=== PATIENT | female | born 2000 | race Caucasian/White ===

== ENCOUNTER 2024-09-20 21:39 | Emergency (ER) | payer BC, SELFPAY ==
[2024-09-20 21:43] VITALS: BP 123/84
[2024-09-20 22:16] LABS: % Basophils 0.4 % (0-2); % Eosinophils 2.1 % (0-6); % Immature Granulocytes 0.2 % (0-0.5); % Lymphocytes 28.1 % (20.5-51.1); % Monocytes 6.6 % (1.7-9.3); % Neutrophils 62.6 % (42.2-75.2); Absolute Basophils 0.1 10^3/uL (0-0.2); Absolute Eosinophils 0.3 10^3/uL (0-0.7); Absolute Lymphocytes 3.5 10^3/uL (1.2-3.4); Absolute Monocytes 0.8 10^3/uL (0.1-0.6); Absolute Neutrophils 7.9 10^3/uL (1.4-6.5); Hematocrit 39.3 % (37.0-47.0); Hemoglobin 12.7 g/dL (12.0-16.0); Mean Corp Hgb Conc. 32.3 g/dL (33.0-37.0); Mean Corpuscular Hgb 27.7 pg (27.0-31.0); Mean Corpuscular Volume 85.6 fL (81.0-99.0); Mean Platelet Volume 8.9 fL (7.4-10.4); Nucleated Red Blood Cells % 0 %; Platelet Count 409 10^3/uL (130-400); Red Blood Cell Count 4.59 10^6/uL (4.20-5.40); Red Cell Dist. Width 12.6 % (11.5-14.5); White Blood Cell Count 12.5 10^3/uL (4.8-10.8)
[2024-09-20 22:33] LABS: COVID-19 Antigen Negative (Negative)
[2024-09-20 22:33] LABS: ALT (SGPT) 28 U/L (0-35); AST (SGOT) 29 U/L (14-36); Albumin 4.8 g/dl (3.5-5.0); Alkaline Phosphatase 96 U/L (38-126); Blood Urea Nitrogen 10 mg/dl (7-17); Calcium 9.6 mg/dl (8.4-10.2); Carbon Dioxide 27 mmol/L (22-30); Chloride 101 mmol/L (98-107); Glucose 97 mg/dl (70-99); Potassium 4.3 mmol/L (3.5-5.1); Sodium 141 mmol/L (135-145); Total Bilirubin 0.2 mg/dl (0.2-1.3); Total Protein 8.2 g/dl (6.3-8.2); eGFR > 60.00
[2024-09-20 22:41] LABS: Troponin I < 0.012 ng/ml
[2024-09-21 00:17] VITALS: BP 127/84
[2024-09-21 01:00] VITALS: BP 109/72
--- NOTE | 2024-09-21 01:47 | ED.GENMED ---
History of Present Illness
General
Chief Complaint: Fainting/Passed Out
Time Seen by Provider: 09/21/24 00:27
History of Present Illness
History of Present Illness:
24-year-old female with history of celiac's disease presenting to the emergency department with syncopal episode. Patient reports for the past several days she has been having a nonproductive cough. Prior to arrival, they were lighting a candle
and it triggered her to have a coughing fit. She then went into the bathroom because she was going to vomit. She sat on the ground and subsequently had a witnessed syncopal episode. Mother reports that she came to it after a few minutes. Patient
does note history of a syncopal episode in the past, after a panic attack. She presently denies any chest, difficulty breathing, weakness, numbness to extremities. She denies any recent fever or known sick contacts. She does note some throat
pain. Denies additional acute medical complaints
Phy Exam
Physical Exam
Physical Exam:
General: Well-appearing, no clinical signs of dehydration, nontoxic and in no acute distress
HEENT: protecting airway, normal-appearing oropharynx
Neck: appears supple
CV: Normal heart rate, regular rhythm
Resp: No accessory muscle use, no increased work of breathing, lungs clear to auscultation bilaterally
Abd: Soft and non-distended, no tenderness to palpation
Extremities: No deformities, no swelling, no erythema
Neuro: alert, no focal neurologic deficit
: deferred
Rectal: deferred
Psych: Normal affect
Skin: Intact
Course
Orders/Labs/Results
Orders:
Orders
09/20/24 21:42
EKG [Electrocardiogram (*1)] Urgent
Reason for Study: Syncope
EKG- Treatment ONCE
09/20/24 21:57
CR Chest - 2 Views Urgent
Comment:
Reason For Exam: respiratory distress
09/20/24 22:03
COVID-19 Antigen Urgent
Source: Nasal Swab
INF RAPID [Influenza A+B Rapid Molecular] Urgent
NATO Source: Nasal Swab
Specimen Description:
09/20/24 22:06
Complete Blood Count/With Diff Urgent
Comprehensive Metabolic Panel Urgent
Troponin I Urgent
09/21/24 01:23
Ketorolac [Toradol] 15 mg IM NOW STA
Abnormal Lab Results
09/20/24
22:06
WBC 12.5 H 10^3/uL
(4.8-10.8)
MCHC 32.3 L g/dL
(33.0-37.0)
Plt Count 409 H 10^3/uL
(130-400)
Absolute Neuts (auto) 7.9 H 10^3/uL
(1.4-6.5)
Absolute Lymphs (auto) 3.5 H 10^3/uL
(1.2-3.4)
Absolute Monos (auto) 0.8 H 10^3/uL
(0.1-0.6)
Creatinine 0.5 L mg/dL
(0.6-1.0)
09/20/24 22:06
09/20/24 22:06
Vital Signs
Initial and Last Documented VS:
Initial Vital Signs
Temp Pulse Resp BP Pulse Ox
99.4 F 86 16 123/84 99
09/20/24 21:43 09/20/24 21:43 09/20/24 21:43 09/20/24 21:43 09/20/24 21:43
Last Documented Vital Signs
Temp Pulse Resp BP Pulse Ox
99.4 F 86 16 109/72 99
09/20/24 21:43 09/20/24 21:43 09/20/24 21:43 09/21/24 01:00 09/21/24 01:15
MDM/Problems Addressed
MDM/Problems Addressed:
24-year-old female with history of celiac's disease presenting after a syncopal episode, as well as cough. Vital signs are normal.
On exam patient is resting comfortably, no acute distress or discomfort. Unremarkable cardiac and pulmonary exam. Patient afebrile, nontoxic. No focal neurologic deficits. Ultimately suspect vasovagal syncopal episode. Patient reports that she
passed out after a coughing fit. EKG nonischemic, no arrhythmia without concern acute cardiac pathology. Again no focal deficits, without central neurologic process. Regarding patient's cough, suspected viral URI. Prior to my assessment, patient
urinalysis and viral swabs, negative. She also had a chest x-ray, without dense of acute pneumonia. She remains hemodynamically stable, asymptomatic. At this time feel that she is stable for discharge with close outpatient primary care follow-up
and continued supportive therapy for her cough. Return precautions communicated to patient and mother at bedside who verbalized understanding
*EKG
Interpreted by ED Provider?: Yes
EKG Intrepretation Date: 09/21/24
EKG Intrepretation Time: 01:54
Interpretation: normal
Comparison EKG: no comparison EKG present
Heart Rate: 86
Rate: normal
Rhythm: sinus
[place]: normal axis
Interval: normal interval
QRS Pattern: normal QRS
Ischemia: no ischemia
*Critical Care Note
Total Time (30-74mins, 75-104mins- exclusive of procedures): Not Applicable
ED Attending Note
-
Portions of this chart may have been created with voice recognition software.� Occasional wrong word or��sound alike� substitutions may have occurred due to the inherent limitations of voice recognition software.
Discharge Plan
Departure
Patient Disposition: Home (Routine Discharge)
Date of Disposition: 09/21/24
Time of Disposition: 01:44
Patient with high blood pressure during this ER visit?: No
Condition: Good
Discharge Problem:
Syncope, vasovagal, Acute viral syndrome
Instructions: Syncope (Fainting) (DC), Upper Respiratory Infection ED
Referrals:
Brianna Peña DO [Family Provider] -
Activity Restrictions/Additional Instructions:
You were seen in the emergency department for a syncopal episode
You are suspected to have an episode of vasovagal syncope. You had normal blood work, chest x-ray imaging, EKG, viral swabs. We also suspect that you have a viral upper respiratory infection. Please continue to take Tylenol or Motrin as for your
symptoms and plenty of oral fluids.
Please follow-up closely with your primary care physician.
Return to the emergency department for any worsening of your symptoms, or any development of chest pain, difficulty breathing, abdominal pain with persistent vomiting and inability to tolerate food or liquid by mouth (concern for dehydration),
weakness, headache or confusion, fever greater than 100.4, or any additional symptoms that are concerning to you.
Thank you for choosing [facility].
Interventions
Interventions:
*Risk Screen - Suicide Last Done: 09/20/24 21:43
*General Assessment Last Done: 09/20/24 21:43
*Neglect/Abuse Screening Last Done: 09/20/24 21:43
ED- Fall Risk Assessment Last Done: 09/20/24 21:43
*ED COVID-19 Vaccine History Last Done: 09/20/24 21:43
ED- Cardiac Assessment Last Done: 09/21/24 00:22
ED- Neurological Assessment Last Done: 09/21/24 00:22
Discharge Date and Time
Print Language: SLOVENIAN
[2024-09-21 02:00] VITALS: BP 113/63
[2024-09-21] MEDS: TORADOL 15 MG IM (02:30)
== END 2024-09-21 02:39 | disposition home or self-care (01) ==
LOC: EMR 21:39
PROVIDERS: EMERGENCY PHYSICIAN Student in an Organized Health Care Education/Training Program; FAMILY PHYSICIAN Internal Medicine
DX: R55 Syncope and collapse (principal); R07.0 Pain in throat; R05.9 Cough, unspecified; B34.9 Viral infection, unspecified; Z11.52 Encounter for screening for COVID-19; K90.0 Celiac disease; Z88.0 Allergy status to penicillin; Z91.018 Allergy to other foods
CPT/HCPCS: 99284; 96372; 71046; 80053; 84484; 85025; 87502; 87811; 93005

== ENCOUNTER 2024-11-29 05:51 | Emergency (ER) | payer BC, SELFPAY ==
[2024-11-29 05:59] VITALS: BP 120/82
[2024-11-29 06:32] LABS: % Basophils 0.3 % (0-2); % Eosinophils 0.1 % (0-6); % Immature Granulocytes 0.4 % (0-0.5); % Lymphocytes 7.6 % (20.5-51.1); % Monocytes 7.6 % (1.7-9.3); Absolute Basophils 0.1 10^3/uL (0-0.2); Absolute Immature Granulocytes 0.1 10^3/uL (0-0.05); Absolute Lymphocytes 1.7 10^3/uL (1.2-3.4); Absolute Monocytes 1.7 10^3/uL (0.1-0.6); Absolute Neutrophils 18.9 10^3/uL (1.4-6.5); Hematocrit 37.5 % (37.0-47.0); Hemoglobin 12.5 g/dL (12.0-16.0); Mean Corp Hgb Conc. 33.3 g/dL (33.0-37.0); Mean Corpuscular Hgb 28.6 pg (27.0-31.0); Mean Corpuscular Volume 85.8 fL (81.0-99.0); Mean Platelet Volume 8.9 fL (7.4-10.4); Nucleated Red Blood Cells % 0 %; Platelet Count 363 10^3/uL (130-400); Red Blood Cell Count 4.37 10^6/uL (4.20-5.40); Red Cell Dist. Width 13.3 % (11.5-14.5); White Blood Cell Count 22.5 10^3/uL (4.8-10.8)
[2024-11-29 06:48] LABS: HCG, Serum Qualitative Screen Negative
[2024-11-29 06:55] LABS: Blood Urea Nitrogen 13 mg/dl (7-17); Calcium 9.8 mg/dl (8.4-10.2); Carbon Dioxide 22 mmol/L (22-30); Chloride 103 mmol/L (98-107); Glucose 107 mg/dl (70-99); Potassium 4.5 mmol/L (3.5-5.1); Sodium 139 mmol/L (135-145); eGFR > 60.00
--- NOTE | 2024-11-29 08:00 | ED.GENMED ---
History of Present Illness
General
Chief Complaint: Throat Problem
Source: patient and family (mother at bedside)
Exam Limitations: none
Time Seen by Provider: 11/29/24 07:34
Nursing documentation reviewed up to this point in time: agreed with
History of Present Illness
History of Present Illness:
24 yo female w h/o celiac, anxiety/depression, presents with gradually worsening sore throat and swelling for past 3 days. Last Ibuprofen 4 a.m.
Past History
Past History
ED Past Medical History: Psychiatric (anxiety, depression) and Other (Celiac)
Social History
Tobacco: Non-smoker
Alcohol: None
Personal: Single
Living: with family
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
Review of Systems
Review of Systems
Allergies reviewed?: Yes
All Other Systems: ROS reviewed and negative except as documented in HPI and ROS
Constitutional: Reports fatigue
EENT: Reports sore throat (swollen glands)
Respiratory: Denies trouble breathing
Cardiac: Denies chest pain
ABD/GI: Denies abdominal pain, nausea, vomiting or diarrhea
Musculoskeletal: Reports no symptoms
Skin: Reports no symptoms
Neurological: Reports no symptoms
Phy Exam
Physical Exam
Physical Exam:
GENERAL: No acute distress. A&Ox3.
CONSTITUTIONAL: T 99.7
EYES: clear, conjunctivae normal
ENMT: moist normal-appearing mucus membranes, Pharynx: large tonsils, multiple cavernous areas with small amount of white exudate bilaterally, tonsils almost touching, hot potato voice, swallowing well, TMs normal
Neck: bilateral tender lymphadenopathy, full ROM, no nuchal rigidity
RESPIRATORY: Regular respirations, nonlabored, lungs clear.
CARDIOVASCULAR: Regular rate and rhythm, no murmurs, no rubs.
GI: Soft, nontender, normal BS
MUSCULOSKELETAL: Moves with ease. Well perfused.
SKIN: Warm, dry, pink
PSYCH: Normal mood and affect. Well kept, interactive and appropriate
NEUROLOGIC: Awake, alert and oriented. No focal neurological deficits
Course
Orders/Labs/Results
Orders:
Orders
11/29/24 06:03
Test Result ONCE
11/29/24 06:17
Basic Metabolic Panel Urgent
Complete Blood Count/With Diff Urgent
HCG, Serum Qualitative Screen Urgent
Monotest Urgent
Comment: ADD ON
11/29/24 06:34
Rapid Strep Group A Urgent
NATO Source: T
Specimen Description:
11/29/24 07:21
Add On- LAB Urgent
Tests Added?: monotest
11/29/24 07:59
Dexamethasone Sod Phosphate [Decadron] 10 mg IV NOW STA
11/29/24 08:00
0.9% Sodium Chloride 1000 ml [Nss] 1,000 ml IV BOLUS
Ketorolac [Toradol] 15 mg IV NOW STA
11/29/24 08:51
Clindamycin 600 mg/50 ml [Cleocin] 600 mg in 50 ml IV NOW
Abnormal Lab Results
11/29/24
06:17
WBC 22.5 H 10^3/uL
(4.8-10.8)
Abs Immat Gran (auto) 0.1 H 10^3/uL
(0-0.05)
Absolute Neuts (auto) 18.9 H 10^3/uL
(1.4-6.5)
Absolute Monos (auto) 1.7 H 10^3/uL
(0.1-0.6)
Neutrophils % 84.0 H %
(42.2-75.2)
Lymphocytes % 7.6 L %
(20.5-51.1)
Glucose 107 H mg/dl
(70-99)
11/29/24 06:17
11/29/24 06:17
Vital Signs
Initial and Last Documented VS:
Initial Vital Signs
Temp Pulse Resp BP Pulse Ox
99.7 F 134 24 120/82 98
11/29/24 05:59 11/29/24 05:59 11/29/24 05:59 11/29/24 05:59 11/29/24 05:59
Last Documented Vital Signs
Temp Pulse Resp BP Pulse Ox
99.7 F 134 24 106/65 100
11/29/24 05:59 11/29/24 05:59 11/29/24 05:59 11/29/24 09:00 11/29/24 09:00
MDM/Problems Addressed
Differential Diagnosis Includes:
strep throat, mono, paratonsillar abscess, retropharyngeal abscess
MDM/Problems Addressed:
24 yo female w h/o celiac, anxiety/depression, presents with gradually worsening sore throat and swelling for past 3 days. Last Ibuprofen 4 a.m.
7:45 a.m.
Pt looks mildly ill, moderately uncomfortable
CBC: WBC 22.5 with shift and elevated monos, no atypical lymphs
CMP: normal
HCG: neg
Rapid strep negative
Plan: With leukocytosis, fever, swollen tonsils, neg mono, will treat with antibiotics for bacterial pharyngitis.
No concerning systemic symptoms, no necrotizing infection, no abscess
9:30 AM:
Patient states she is feeling much better, she looks better. Posterior pharynx reevaluated, no abscess.
She is out of bed and ambulating to bathroom and back, tolerating p.o. fluids
T 99.4, HR 98 for this examiner
Mom and patient are comfortable going home.
*Critical Care Note
Total Time (30-74mins, 75-104mins- exclusive of procedures): Not Applicable
ED Attending Note
-
Portions of this chart may have been created with voice recognition software.� Occasional wrong word or��sound alike� substitutions may have occurred due to the inherent limitations of voice recognition software.
Discharge Plan
Departure
Patient Disposition: Home (Routine Discharge)
Date of Disposition: 11/29/24
Time of Disposition: 09:47
Patient with high blood pressure during this ER visit?: No
Condition: Good
Discharge Problem:
Acute bacterial tonsillitis
Instructions: Sore Throat, Adult (DC)
Prescriptions:
New
clindamycin HCl 300 mg capsule
300 mg PO TID Qty: 20 0RF
Referrals:
Brianna Peña, DO [Family Provider] - As needed
Stand Alone Forms: Return to Work
Activity Restrictions/Additional Instructions:
As we discussed, your rapid strep and [place] tests are neg.
I am treating you for a bacterial tonsil infection with Clindamycin antibiotic, 300 mg 3 times a day for 7 days. I sent a prescription to your pharmacy
You were given a dose of Decadron 10 mg IV today for swelling, pain and inflammation, this will last for 3 days
Tylenol and/or Ibuprofen as needed for fever, pain
Return here immediately for worse swelling, pain, difficulty swallowing, fever, vomiting or feeling sicker in any way.
Interventions
Interventions:
*Risk Screen - Suicide Last Done: 11/29/24 05:59
*Neglect/Abuse Screening Last Done: 11/29/24 05:59
*ED- Fall Risk Assessment Last Done: 11/29/24 09:13
*ED COVID-19 Vaccine History Last Done: 11/29/24 09:13
*Nursing Disposition Last Done: 11/29/24 10:22
ED-EENT Assessment Last Done: 11/29/24 09:13
ED- Pulmonary Assessment Last Done: 11/29/24 09:13
Discharge Date and Time
Print Language: GREEK
[2024-11-29 08:11] LABS: Monotest Negative (Negative)
[2024-11-29] MEDS: NSS 1000 IV (08:37)
[2024-11-29] MEDS: TORADOL 15 MG IV (08:38)
[2024-11-29] MEDS: DECADRON 10 MG IV (08:39)
[2024-11-29 08:42] VITALS: BP 114/77
[2024-11-29 09:00] VITALS: BP 106/65
[2024-11-29] MEDS: CLEOCIN 50 IV (09:00)
== END 2024-11-29 10:22 | disposition home or self-care (01) ==
LOC: EMR 05:51
PROVIDERS: EMERGENCY PHYSICIAN Emergency Medicine; FAMILY PHYSICIAN Internal Medicine
DX: J03.80 Acute tonsillitis due to other specified organisms (principal); B96.89 Other specified bacterial agents as the cause of diseases classified elsewhere
CPT/HCPCS: 99284; 96365; 96375; 80048; 84703; 85025; 86308; 87070; 87880